=== PATIENT | male | born 2000 | race Two or more races ===

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

== ENCOUNTER 2018-07-11 23:11 | Emergency (ER) | payer OTHER ==
[2018-07-11] MEDS ORDERED: diphenhydrAMINE 25 MG CAP PO ONE (23:25)
--- NOTE | 2018-07-11 23:44 | EDPHY ---
H & P Stated Complaint: Hives gradually worsening since 7pm. No known food/drug allergies Time Seen by Provider: 07/11/18 23:28 HPI/ROS: Chief Complaint: Skin rash HPI: 18 year old male was studying in the library 2 hr ago with me on the onset of itching and a rash over his abdomen, flank arms and legs. He is not aware of any new exposures. Does not have a history of similar episodes in the past. It is very itchy. Not painful. No fevers or chills. No cough. No recent illness. No known new exposures to foods or other substances. ROS: 10 systems were reviewed and were negative except those elements noted in the HPI. PMH: Denies Social History: No smoking, no alcohol, no recreational drug use Family History: non-contributory Physical Exam: Gen: Awake, Alert, No Distress HEENT: Nose: no rhinorrhea Eyes: PERRLA, EOMI Mouth: Moist mucosa no oral pharyngeal edema Neck: Supple, no JVD Chest: nontender, lungs clear to auscultation Heart: S1, S2 normal, no murmur Abd: Soft, non-tender, no guarding Back: no CVA tenderness, no midline tenderness Ext: no edema, non-tender Skin: Moderate generalized urticaria on his trunk and extremities Neuro: CN II-XII intact, Sensation grossly intact, Strength 5/5 in bilateral upper and lower extremities - Personal History Current Tetanus/Diphtheria Vaccine: Yes - Medical/Surgical History Hx Asthma: No Hx Chronic Respiratory Disease: No Hx Diabetes: No Hx Cardiac Disease: No Hx Renal Disease: No Hx Cirrhosis: No Hx Alcoholism: No Hx HIV/AIDS: No Hx Splenectomy or Spleen Trauma: No Other PMH: denies - Social History Smoking Status: Never smoked Constitutional: Initial Vital Signs Temperature (C) 36.7 C 07/11/18 23:14 Heart Rate 66 07/11/18 23:14 Respiratory Rate 16 07/11/18 23:14 Blood Pressure 127/69 H 07/11/18 23:14 O2 Sat (%) 94 07/11/18 23:14 O2 Delivery Mode Room Air Allergies/Adverse Reactions: No Known Allergies Allergy (Verified 06/21/17 15:53) Home Medications: Medication Instructions Recorded Acne Treatment 07/11/18 predniSONE 60 mg PO DAILY #9 tab 07/12/18 Medical Decision Making ED Course/Re-evaluation: Patient's hives have resolved after Benadryl and prednisone and Pepcid. He is without complaint. Uncertain what the cause of his allergic reaction. He will be mindful of taking an inventory at home. Will discharge with follow up with [facility]. - Data Points Medications Given: Discontinued Medications Diphenhydramine HCl (Benadryl) 50 mg PO EDNOW ONE Stop: 07/11/18 23:26 Last Admin: 07/11/18 23:27 Dose: 50 mg Famotidine (Pepcid) 20 mg PO EDNOW ONE Stop: 07/12/18 00:27 Last Admin: 07/12/18 00:28 Dose: 20 mg Prednisone (Prednisone) 60 mg PO EDNOW ONE Stop: 07/12/18 00:27 Last Admin: 07/12/18 00:27 Dose: 60 mg Departure - Departure Disposition: Home, Routine, Self-Care Clinical Impression: Allergic reaction Condition: Good Instructions: General Allergic Reaction (ED), Urticaria (ED) Additional Instructions: Continue taking Benadryl every 6 hr for the next 12 hr. Complete your course of prednisone. Follow up with [facility] in 2-3 days for further evaluation. Return to the emergency department for worsening itching, hives, lightheadedness , fainting, difficulty breathing, or any other concerns. Referrals: [facility],. [Clinic] - As per Instructions Prescriptions: predniSONE 60 mg PO DAILY #9 tab
[2018-07-12] MEDS ORDERED: FAMOTIDINE 20 MG TAB ONE (00:26)
[2018-07-12] MEDS ORDERED: FAMOTIDINE 20 MG TAB PO ONE (00:26)
[2018-07-12] MEDS ORDERED: predniSONE 20 MG TAB ONE (00:26)
[2018-07-12] MEDS ORDERED: predniSONE 20 MG TAB PO ONE (00:26)
[2018-07-12 01:06] VITALS: BP 120/73
== END 2018-07-12 01:05 | disposition home or self-care (01) ==
DX: T78.40XA Allergy, unspecified, initial encounter (principal); R21 Rash and other nonspecific skin eruption
CPT/HCPCS: J7512

== ENCOUNTER 2018-11-14 01:00 | Emergency (ER) | payer OTHER ==
--- NOTE | 2018-11-14 01:28 | EDPHY ---
H & P Stated Complaint: Cough, fever, runny nose, sore throat Time Seen by Provider: 11/14/18 01:07 HPI/ROS: Chief Complaint: Cough, runny nose, sore throat, fever HPI: 18-year-old male presenting with several days of cough, sore throat, subjective fever. Cough is nonproductive. No shortness of breath. No nausea or vomiting. Mild headache. Mild sore throat. No difficulty swallowing. No difficulty breathing. He has been taking ibuprofen and acetaminophen with some relief but his symptoms returned when the medications wear off. Some generalized fatigue and malaise. No numbness or weakness. No neck pain or stiffness. No skin rash. ROS: 10 systems were reviewed and were negative except those elements noted in the HPI. PMH: None Social History: No smoking, no alcohol, no recreational drug use Family History: non-contributory Physical Exam: Gen: Awake, Alert, No Distress HEENT: Ears: Normal Nose: no rhinorrhea Eyes: PERRLA, EOMI Mouth: Moist mucosa Neck: Supple, no JVD, mild anterior cervical lymphadenopathy Chest: nontender, lungs clear to auscultation Heart: S1, S2 normal, no murmur Abd: Soft, non-tender, no guarding Back: no CVA tenderness, no midline tenderness Ext: no edema, non-tender Skin: no rash Neuro: CN II-XII intact, Sensation grossly intact, Strength 5/5 in bilateral upper and lower extremities - Personal History Current Tetanus Diphtheria and Acellular Pertussis (TDAP): No - Medical/Surgical History Hx Asthma: No Hx Chronic Respiratory Disease: No Hx Diabetes: No Hx Cardiac Disease: No Hx Renal Disease: No Hx Cirrhosis: No Hx Alcoholism: No Hx HIV/AIDS: No Hx Splenectomy or Spleen Trauma: No Other PMH: denies - Social History Smoking Status: Never smoked Constitutional: Initial Vital Signs Temperature (C) 36.8 C 11/14/18 01:02 Heart Rate 81 11/14/18 01:02 Respiratory Rate 17 11/14/18 01:02 Blood Pressure 131/90 H 11/14/18 01:02 O2 Sat (%) 98 11/14/18 01:02 O2 Delivery Mode Room Air Allergies/Adverse Reactions: No Known Allergies Allergy (Verified 11/14/18 01:01) Home Medications: Medication Instructions Recorded Acne Treatment 07/11/18 Medical Decision Making ED Course/Re-evaluation: 18-year-old male with normal vital signs, it URI type symptoms. Normal exam. Symptoms consistent with viral illness. No indication for antibiotics at this time. Will discharge with follow up with student health. Patient has been counseled the symptoms her last 7-10 days, return for any concerns. He is afebrile here. Departure - Departure Disposition: Home, Routine, Self-Care Clinical Impression: Viral URI Condition: Good Instructions: Upper Respiratory Infection (ED) Additional Instructions: Alternate acetaminophen (1000 mg) with ibuprofen (400 mg) every 4 hours as needed for fevers, chills, aches or pain. Follow up with student health in 3-4 days if symptoms are not improving. Referrals: [facility],. [Clinic] - As per Instructions Stand Alone Forms: School Excuse
[2018-11-14 01:34] VITALS: BP 134/80
== END 2018-11-14 01:34 | disposition home or self-care (01) ==
DX: J06.9 Acute upper respiratory infection, unspecified (principal)

== ENCOUNTER 2019-03-27 18:05 | Emergency (ER) | payer OTHER | END 2019-03-27 18:36 | disposition home or self-care (01) ==

== ENCOUNTER 2019-04-04 00:43 | Emergency (ER) | payer OTHER | END 2019-04-04 01:16 | disposition home or self-care (01) ==